=== PATIENT | female | born 1965 | race American Indian/Alaskan Native ===

== ENCOUNTER 2016-08-10 21:12 | Emergency (ER) | payer SELFPAY ==
[2016-08-10 22:43] VITALS: BP 136/82
== END 2016-08-10 22:50 ==
LOC: ED 21:12
DX: F10.129 Alcohol abuse with intoxication, unspecified (principal); Z53.21 Procedure and treatment not carried out due to patient leaving prior to being seen by health care provider

== ENCOUNTER 2016-10-02 03:19 | Emergency (ER) | payer SELFPAY | END 2016-10-02 04:10 | disposition left against medical advice (07) | LOC: ED 03:19 | DX: M79.89 Other specified soft tissue disorders (principal); Z53.21 Procedure and treatment not carried out due to patient leaving prior to being seen by health care provider ==

== ENCOUNTER 2016-10-31 10:32 | Emergency (ER) | payer SELFPAY ==
[2016-10-31 10:58] VITALS: BP 155/89
[2016-10-31 11:24] LABS: Basophils % (Auto) 0.6 % (0.0-1.8); Eosinophils % (Auto) 0.8 % (0.0-4.3); Hematocrit 35.5 % (30.3-42.9); Hemoglobin 11.2 gm/dl (10.1-14.3); Mean Corpuscular HGB Conc 32 % (30-34); Mean Corpuscular Volume 70 fl (79-97); Platelet Count 303 K/mm3 (140-440); Red Blood Count 5.06 M/mm3 (3.65-5.03); Red Cell Distribution Width 14.8 % (13.2-15.2); White Blood Count 9.7 K/mm3 (4.5-11.0)
[2016-10-31 11:30] LABS: Mean Corpuscular Hemoglobin 22 pg (28-32)
--- NOTE | 2016-10-31 12:24 | XRay Report ---
Right hand: Injury, pain and edema. There is focal swelling over the dorsum of the carpal metacarpal joints is seen in the lateral projection. No laceration or foreign body noted. The visualized bones and joints are normal. Impression: Traumatic swelling. No fracture.
== END 2016-10-31 16:45 | disposition left against medical advice (07) ==
LOC: ED 10:32
DX: Z48.02 Encounter for removal of sutures (principal)
CPT/HCPCS: 36415; 85025